=== PATIENT | male | born 1985 | race Caucasian/White ===

== ENCOUNTER 2018-09-01 21:44 | Emergency (ER) | payer MEDICAID ==
[2018-09-01 21:55] VITALS: Wt 70.9 kg
[2018-09-01] MEDS ORDERED: PHENERGAN25 M1 PO (22:02)
[2018-09-01] MEDS ORDERED: PREDNISONE20 MG PO (22:02)
[2018-09-01] MEDS ORDERED: ZPAK PO (23:09)
[2018-09-01] MEDS ORDERED: MUCINEX DM ER1 EAC1 PO (23:09)
[2018-09-01 23:53] VITALS: BP 120/65
== END 2018-09-01 23:53 | disposition home or self-care (01) ==
LOC: D.ER 21:44
DX: J40 Bronchitis, not specified as acute or chronic (principal); R09.89 Other specified symptoms and signs involving the circulatory and respiratory systems; J02.9 Acute pharyngitis, unspecified